=== PATIENT | female | born 1985 | race Caucasian/White ===

== ENCOUNTER 2017-05-06 18:52 | Emergency (ER) | payer MEDICAID ==
[2017-05-06 19:25] VITALS: BP 111/77
[2017-05-06] MEDS ORDERED: Erythromycin Base 0.5% Ophth Oint 1 GM Tube EYERT ONE (20:20)
--- NOTE | 2017-05-06 20:26 | EDM.PDOC ---
ED HPI GENERAL MEDICAL PROBLEM - General Chief Complaint: Eye Problems Stated Complaint: SOMETHING IN RIGHT EYE Time Seen by Provider: 05/06/17 20:10 Source of Information: Reports: Patient History Limitations: Reports: No Limitations - History of Present Illness INITIAL COMMENTS - FREE TEXT/NARRATIVE: Patient is a 32-year-old female presents ED complaining of sensation of foreign body in the right eye. Patient was laying linoleum and questions if she may have gotten glue/adhesive into the right eye. Right eye has a sensation of a foreign object present. She has been rubbing her eyes. This started approximately 3 hours ago. She did try flushing was at home with no relief. States her vision does feel a little bit blurry, but notes she is excessive watering present. Onset: Today, Sudden Right Eye Pain Score (Numeric/FACES): 5 - Related Data Allergies Allergy/AdvReac Type Severity Reaction Status Date / Time No Known Allergies Allergy Verified 05/06/17 19:25 Home Meds: Home Meds . [No Known Home Meds] 05/06/17 [History] Past Medical History - Past Health History Medical/Surgical History: Denies Medical/Surgical History Social & Family History - Tobacco Use Smoking Status *Q: Current Every Day Smoker Years of Tobacco use: 6 Packs/Tins Daily: 0.5 - Caffeine Use Caffeine Use: Reports: Coffee, Soda - Recreational Drug Use Recreational Drug Use: No ED ROS GENERAL - Review of Systems Review Of Systems: See Below HEENT: Reports: Eye Discharge (Excessive tears), Eye Pain, Vision Change. Denies: Contact Lenses ED EXAM GENERAL W FULL EYE - Physical Exam Exam: See Below Exam Limited By: No Limitations General Appearance: Alert, WD/WN, No Apparent Distress Eye Exam: Right Eye: Conjunctival Injection, Corneal Abrasion, EOMI, Vision Changes (Mild blurriness), Bilateral Eye: PERRL Visual Acuity (R) 20/: 30 Visual Acuity (L) 20/: 20 With Correction: No Eyelids: Right: Normal Appearance, Infraorbital Anesthesia, Lid Everted for Exam Conjunctiva & Sclera: Right: Injected Cornea Exam: Right: Corneal Abrasion (Questional area of uptake at the 12:00 to 2:00 location of the cornea.), Examined with Flourescein Extraocular Movements: Right: Intact Pupils: Normal Accommodation Pupillary Size: Right: 4 mm Pupillary Reaction: Right: Brisk Ears: Hearing Grossly Normal Nose: Normal Inspection Course - Vital Signs Last Recorded V/S: Last Vital Signs Temp 97.6 F 05/06/17 19:21 Pulse 89 05/06/17 19:21 Resp 16 05/06/17 19:21 BP 111/77 05/06/17 19:21 Pulse Ox 100 05/06/17 19:21 - Orders/Labs/Meds Orders: Active Orders 24 hr Category Date Time Status Erythromycin Base [Erythromycin 0.5% Ophth Oint] Med 05/06/17 20:20 Once 1 gm EYERT ONETIME ONE - Re-Assessments/Exams Free Text/Narrative Re-Assessment/Exam: Exam with slit lamp did reveal an area of questionable uptake of flures to the 12:00 to 2:00 region of the cornea. Ordered erythromycin ointment to be placed the right eye. Patient will be sent home with the remaining tube. She will see an bark skinner tomorrow for reevaluation. Discharge instructions as documented. Departure - Departure Time of Disposition: 20:30 Disposition: Home, Self-Care 01 Condition: Good Clinical Impression: Corneal abrasion Qualifiers: Encounter type: initial encounter Laterality: right Qualified Code(s): S05.01XA - Injury of conjunctiva and corneal abrasion without foreign body, right eye, initial encounter - Discharge Information Instructions: Eye Foreign Body, [id number] Forms: ED Department Discharge Additional Instructions: Apply erythromycin ointment 1 ribbon to the right eye 3 times a day for 5 days. Take Tylenol and ibuprofen in alternating fashion for pain. See a bark skinner tomorrow for reevaluation. Return to ED for any new or worsening symptoms. - My Orders Last 24 Hours: My Active Orders 05/06/17 20:20 Erythromycin Base [Erythromycin 0.5% Ophth Oint] 1 gm EYERT ONETIME ONE - Assessment/Plan Last 24 Hours: My Active Orders 05/06/17 20:20 Erythromycin Base [Erythromycin 0.5% Ophth Oint] 1 gm EYERT ONETIME ONE
== END 2017-05-06 20:39 | disposition home or self-care (01) ==
LOC: JD.ED 18:52
DX: S05.01XA Injury of conjunctiva and corneal abrasion without foreign body, right eye, initial encounter (principal); F17.210 Nicotine dependence, cigarettes, uncomplicated; X58.XXXA Exposure to other specified factors, initial encounter
CPT/HCPCS: 99283; A9270